=== PATIENT | female | born 1960 | race Caucasian/White ===

== ENCOUNTER 2016-11-27 12:31 | Emergency (ER) | payer OTHER ==
[2016-11-27 13:48] LABS: BASO % 0.2 % (0.1-1.2); EOS # 0.2 10_X3_uL (0.0-0.4); EOS % 1.6 % (0.7-5.8); GRAN # 9.8 10_X3_uL (1.6-6.1); GRAN % 70.8 % (34.0-71.1); HEMATOCRIT 44.2 % (34-45); HEMOGLOBIN 14.7 g/dL (11.2-15.7); LYMPH # 2.9 10_X3_uL (1.2-3.7); LYMPH % 20.5 % (19.3-51.7); MEAN CORPUSCULAR HEMOGLOBIN 30.9 pg (27.0-33.0); MEAN CORPUSCULAR HGB CONC 33.3 g/dL (32.0-36.0); MEAN CORPUSCULAR VOLUME 93.1 fL (79-95); MEAN PLATELET VOLUME 10.4 fl (7.5-11.5); MONO % 6.9 % (4.7-12.5); PLATELET COUNT 297 x10_3/uL (182-369); RED BLOOD COUNT 4.75 x10_6/uL (3.9-5.2); WHITE BLOOD COUNT 13.9 x10_3/uL (4.0-10.0)
[2016-11-27 14:01] LABS: BLOOD UREA NITROGEN 11 mg/dL (7-18); CALCIUM 9.8 mg/dL (8.7-10.7); CARBON DIOXIDE 27 mmol/L (21-32); CREATININE 0.8 mg/dL (0.6-1.3); GLUCOSE,RANDOM 98 mg/dL (70-99); POTASSIUM 3.7 mmol/L (3.5-5.1); SODIUM 141 mmol/L (136-145)
== END 2016-11-27 16:19 | disposition home or self-care (01) ==
LOC: ER 12:31
PROVIDERS: Emergency Medicine
DX: J06.9 Acute upper respiratory infection, unspecified (principal); B37.0 Candidal stomatitis; T63.481A Toxic effect of venom of other arthropod, accidental (unintentional), initial encounter; R22.0 Localized swelling, mass and lump, head; J44.9 Chronic obstructive pulmonary disease, unspecified; F17.210 Nicotine dependence, cigarettes, uncomplicated; R05 Cough; Z79.899 Other long term (current) drug therapy; Z79.891 Long term (current) use of opiate analgesic
CPT/HCPCS: 36415; 70220; 71020; 80048; 85025; 96372; 99283-25